=== PATIENT | female | born 1965 | race Caucasian/White ===

== ENCOUNTER → 2017-07-01 | Outpatient (CLI) | payer OTHER ==
[~2017-07-01] VITALS: Ht 157.5 cm; Wt 73.2 kg
[~2017-07-01] MED LIST: CHLORHEXIDINE GLUCONATE 2 % 1 PACK (2 CLOTHS) TOPICAL PRN; IMIT50TA PO; KRIL1000 PO; LACTATED RINGER'S 1000 ML IV PRN; LIDOCAINE HCL 1% PF 5 ML SYRINGE OTHER ONE; METOPROLOL TARTRATE 25 MG TAB PO PRN; MULTTAB67 PO; NEXI40CA PO; POVIDONE IODINE 5% (ANTISEPSIS KIT) 4 APPLICATIONS EACH NARE PRN; PROPOFOL 200 MG/20 ML AMP IV ONE; SODIUM CHLORID 0.9% 500 ML IV PRN
--- NOTE | 2017-07-01 10:22 | GIPROC ---
[facility] [address] [facility]. [facility], [address] COLONOSCOPY PROCEDURE REPORT EXAM DATE: 07/01/2017 PATIENT NAME: Ej Emerson MR #: [id number] BIRTHDATE: 1965 ENDOSCOPIST: Aurelio Lamar MD ORDER #: [id number] CORPORATE TREASURER: Bianca Kumar and Emani Allison STATUS: outpatient INDICATIONS: The patient is a 51 yr old female here for a colonoscopy due to average risk patient for colon cancer PROCEDURE PERFORMED: Colonoscopy, screening MEDICATIONS: Per Anesthesia and None. PREP QUALITY: excellent ESTIMATED BLOOD LOSS: None CONSENT: The patient understands the risks and benefits of the procedure and understands that these risks include, but are not limited to: sedation, allergic reaction, infection, perforation and/or bleeding. Alternative means of evaluation and treatment include, among others: physical exam, x-rays, and/or surgical intervention. The patient elects to proceed with this endoscopic procedure. medical equipment was checked for proper function. Hand hygiene and appropriate measures for infection prevention was taken. After the risks, benefits and alternatives of the procedure were thoroughly explained, Informed consent was verified, confirmed and timeout was successfully executed by the treatment team. A digital exam revealed no abnormalities of the rectum The Pentax EC-[id number] endoscope was introduced through the anus and advanced to the terminal ileum which was intubated for a short distance. The instrument was then slowly withdrawn as the colon was fully examined. COLON FINDINGS: The colon mucosa was otherwise normal. Mild diverticulosis was noted in the ascending colon, transverse colon, descending colon, and sigmoid colon. Retroflexed views revealed internal hemorrhoids and Retroflexed views revealed small internal hemorrhoids The scope was then completely withdrawn from the patient and the procedure terminated. PROCEDURE WITHDRAWAL TIME:8minutes ADVERSE EVENTS: There were no complications. IMPRESSIONS: 1. The colon mucosa was otherwise normal 2. Mild diverticulosis was noted in the ascending colon, transverse colon, descending colon, and sigmoid colon 3. Retroflexed views revealed small internal hemorrhoids 4. Revealed no abnormalities of the rectum RECOMMENDATIONS: High fiber diet RECALL: Return 10 years Colonoscopy Aurelio Lamar MD eSigned: Aurelio Lamar MD 07/01/2017 10:21 AM cc: Dalton Dong M.D. PATIENT NAME: Ej Emerson MR#: [id number]
[2017-07-01 11:05] VITALS: BP 112/71; PULSE 66; RESP 20; TEMP 97.3; O2SAT 97
--- NOTE | 2017-07-01 20:18 | EKG ---
Date Performed: 07/01/2017 Time Performed: 08:45:02 PTAGE: 51 years EKG: Sinus rhythm NORMAL ECG NO PREVIOUS TRACING DOCTOR: Troy Gallo Interpretating Date/Time 07/01/2017 20:17:30
== END ==
LOC: HSDC 08:10
PROVIDERS: ATTEND Internal Medicine Gastroenterology
DX: Z12.11 Encounter for screening for malignant neoplasm of colon (principal); K57.30 Diverticulosis of large intestine without perforation or abscess without bleeding; K64.8 Other hemorrhoids; K64.4 Residual hemorrhoidal skin tags; Z01.810 Encounter for preprocedural cardiovascular examination
CPT/HCPCS: 00812; 45378; 93005; J7120